=== PATIENT | female | born 1995 | race Caucasian/White ===

== ENCOUNTER → 2023-12-31 | Outpatient (CLI) | payer BC ==
--- NOTE | 2023-12-31 09:34 | MR ---
INDICATION: Patient age:Female; 28 years old; Reason for study: S06.0X1A CONCUSSION W LOC OF 30 MINUTES OR LESS; [facility]. COMPARISON: CT brain 07/08/2012, 06/30/2011. TECHNIQUE: Multi planar, multi sequence imaging was performed through the brain without the administr ation of contrast. FINDINGS: The martinez-white junctions, ventricular system, basal cisterns appear unremarkable. Diffusion-weighted imaging shows no evidence of restricted diffusion to suggest acute/subacute infarct. Intracranial art erial flow voids are maintained. Midline structures show no abnormality. No abnormal FLAIR signal abn ormalities. The susceptibility weighted images do not reveal any evidence for micro-hemorrhage. The bone marrow signal is within normal limits. The paranasal sinuses and globes are unremarkable. IMPRESSION: No evidence of acute/subacute infarct or intracranial mass. [facility], , 12/31/2023 9:32 AM
== END | disposition home or self-care (01) ==
LOC: RADMRIMAIN 06:56
PROVIDERS: ATTEND Psychiatry & Neurology Neurology
DX: S06.0X1A Concussion with loss of consciousness of 30 minutes or less, initial encounter (principal)
CPT/HCPCS: 70551